=== PATIENT | female | born 1990 | race Caucasian/White ===

== ENCOUNTER 2017-04-14 17:41 | Emergency (ER) | payer MEDICAID ==
[~2017-04-14] VITALS: Ht 165.1 cm; Wt 58.0 kg
[2017-04-14 17:54] VITALS: Ht 165.1 cm; Wt 58.0 kg
[2017-04-14 18:52] VITALS: BP 122/74
== END 2017-04-14 18:52 | disposition home or self-care (01) ==
LOC: ED 17:41
DX: K20.9 Esophagitis, unspecified (principal)